=== PATIENT | male | born 1985 | race Caucasian/White ===

== ENCOUNTER 2016-06-04 08:43 | Emergency (ER) | payer OTHER ==
[2016-06-04 08:51] VITALS: BP 164/88; PULSE 90; TEMP 98.1; BMI 36.9
[2016-06-04] MEDS ORDERED: OXYCODONE/APAP 5/325MG COMBO TABLET PO ONE (09:01)
[2016-06-04] MEDS ORDERED: OXYCODONE/APAP 5/325MG COMBO TABLET ONE (09:03)
--- NOTE | 2016-06-04 09:07 | PDOC ---
History of Present Illness - General Chief Complaint: Pain Stated Complaint: left shoulder,neck pain Time Seen by Provider: 06/04/16 08:45 - History of Present Illness Initial Comments: 06/04/16 09:02 30-year-old male with a negative past medical history He works at the [employer], and does a lot of heavy lifting, lifting heavy boxes He's had some left shoulder issues in the past from heavy lifting Patient is complaining of 3 weeks of spontaneous left shoulder pain, which is worse with heavy lifting He denies any radicular symptoms He denies any fall or direct trauma to the area He denies any erythema or swelling He denies any fevers or chills He denies any associated neck pain or chest pain He denies any numbness or tingling in his fingers or hand He denies any other symptoms Past History - Past Medical History Allergies/Adverse Reactions: Allergies Allergy/AdvReac Type Severity Reaction Status Date / Time No Known Allergies Allergy Verified 06/04/16 08:44 Home Medications: Ambulatory Orders Ibuprofen [Motrin -] 800 mg PO PRN PRN 06/04/16 Oxycodone HCl/Acetaminophen [Percocet 5-325 mg Tablet] 1 tab PO Q6H PRN #14 tablet MDD 5 06/04/16 Prednisone [Deltasone -] 20 mg PO DAILY #5 tablet 06/04/16 Diabetes: Yes (borderline) - Psycho/Social/Smoking Cessation Hx Anxiety: No Suicidal Ideation: No Smoking History: Never smoked Have you smoked in the past 12 months: No Information on smoking cessation initiated: No Hx Alcohol Use: Yes (social) Drug/Substance Use Hx: No Substance Use Type: None *Physical Exam - Vital Signs Last Vital Signs Temp Pulse Resp BP Pulse Ox 98.1 F 90 20 164/88 99 06/04/16 08:44 06/04/16 08:44 06/04/16 08:44 06/04/16 08:44 06/04/16 08:44 - Physical Exam Comments: 06/04/16 09:03 Physical exam Last Vital Signs Temp Pulse Resp BP Pulse Ox 98.1 F 90 20 164/88 99 06/04/16 08:44 06/04/16 08:44 06/04/16 08:44 06/04/16 08:44 06/04/16 08:44 Patient is alert and ambulatory and answering questions without difficulty Head is normocephalic and atraumatic There is no C-spine T-spine or LS-spine tenderness Left shoulder- There is no swelling or erythema Patient can extend to 90, and then has pain There is pain with external and internal rotation, and pain with abduction There is no point tenderness All distal neurovascular is intact in the left upper extremity With good pulses and intact sensation Is full range of motion of the elbow and wrist No rashes or erythema is noted Medical Decision Making - Medical Decision Making 06/04/16 09:05 Most likely left shoulder strain/repetitive use syndrome left shoulder patient states that high-dose Motrin is not helping Sling, rest, elevate, will add prednisone No clinical indications for x-ray at this time Will referred orthopedics for follow-up *DC/Admit/Observation/Transfer Diagnosis at time of Disposition: Left shoulder strain, Repetitive motion injury - Discharge Dispostion Disposition: HOME Condition at time of disposition: Good - Referrals Referrals: Shawn West MD [Staff Physician] - Call tomorrow - Patient Instructions Printed Discharge Instructions: How to Use a Sling, Shoulder Sprain, DI for Shoulder Sprain Additional Instructions: Sling as directed, rest Prednisone as directed for the next few days - start tomorrow as you received your first dose here today Motrin for pain, Percocet for breakthrough pain as directed-do not drive when taking this medication Please follow-up with orthopedics in the next few days-you are being referred to Dr. West's group Followup with your primary care physician in 24-48 hours Return immediately if you worsen in any way Take your medications as directed - Post Discharge Activity Work/School Note: Back to Work
[2016-06-04] MEDS ORDERED: predniSONE 20 MG TABLET (UD) PO ONE (09:10)
[2016-06-04] MEDS ORDERED: predniSONE 20 MG TABLET (UD) ONE (09:16)
== END 2016-06-04 09:17 | disposition home or self-care (01) ==
LOC: FER 08:43
DX: S46.912A Strain of unspecified muscle, fascia and tendon at shoulder and upper arm level, left arm, initial encounter (principal); T14.90 Injury, unspecified; X58.XXXA Exposure to other specified factors, initial encounter; Y93.89 Activity, other specified; Y92.9 Unspecified place or not applicable; Y99.0 Civilian activity done for income or pay
CPT/HCPCS: 99282-25

== ENCOUNTER 2017-04-05 12:42 | Emergency (ER) | payer OTHER ==
[2017-04-05 13:16] VITALS: BP 153/93; PULSE 87; TEMP 97.6; BMI 50.1
[2017-04-05] MEDS ORDERED: SODIUM CHLORIDE 1,000 ML IV STA (13:36)
--- NOTE | 2017-04-05 13:38 | PDOC ---
History of Present Illness - History of Present Illness Initial Comments: 04/05/17 15:24 The patient is a 31 year old male, with no significant past medical history, who presents to the emergency department with 2 days of diffuse abdominal pain and slight loss of appetite. He reports the pain is worse in his lower abdomen, however, complains of pain to his abdomen diffusely. He denies chest pain, shortness of breath, headache and dizziness. He denies fever, chills, nausea, vomit, diarrhea and constipation. He denies dysuria, frequency, urgency and hematuria. Allergies: NKDA Past surgical history: none reported Social history: none smoker. No EtOH use. <Cate Sparks - Last Filed: 04/05/17 15:30> - General History Source: Patient <Vick Barrett - Last Filed: 04/05/17 17:39> - General Chief Complaint: Pain Stated Complaint: ABD PAIN Time Seen by Provider: 04/05/17 13:04 Past History <Cate Sparks - Last Filed: 04/05/17 15:30> - Past Medical History COPD: No Diabetes: Yes (borderline) - Suicide/Smoking/Psychosocial Hx Smoking History: Never smoked Have you smoked in the past 12 months: No Information on smoking cessation initiated: No Hx Alcohol Use: Yes (social) Drug/Substance Use Hx: No Substance Use Type: None <Vick Barrett - Last Filed: 04/05/17 17:39> - Past Medical History Allergies/Adverse Reactions: Allergies Allergy/AdvReac Type Severity Reaction Status Date / Time No Known Allergies Allergy Verified 04/05/17 12:43 Home Medications: Ambulatory Orders Ciprofloxacin HCl [Cipro] 500 mg PO BID #20 tablet 04/05/17 Metformin HCl 1,000 mg PO BID 04/05/17 Metronidazole [Flagyl] 375 mg PO TID #30 capsule 04/05/17 Review of Systems - Review of Systems Able to Perform ROS?: Yes Constitutional: Yes: See HPI, Loss of Appetite. No: Chills, Diaphoresis, Fever , Weakness HEENTM: No: Symptoms Reported, See HPI, Eye Pain, Blurred Vision, Tearing, Recent change in vision, Double Vision, Cataracts, Ear Pain, Ocular Prothesis, Ear Discharge, Nose Pain, Nose Congestion, Tinnitus, Nose Bleeding, Hearing Loss , Throat Pain, Throat Swelling, Mouth Pain, Dental Problems, Difficulty Swallowing, Mouth Swelling, Other Respiratory: Yes: See HPI, Other. No: Symptoms reported, Cough, Orthopnea, Shortness of Breath, SOB with Exertion, SOB at Rest, Stridor, Wheezing, Productive cough, Hemoptysis Cardiac (ROS): Yes: Symptoms Reported, See HPI. No: Chest Pain, Edema, Irregular Heart Rate, Lightheadedness, Palpitations, Syncope, Chest Tightness, Other ABD/GI: Yes: Symptoms Reported, See HPI, Poor Appetite, Abdominal cramping ( diffuse abd pain). No: Abdominal Distended, Blood Streaked Bowels, Constipated , Diarrhea, Nausea, Rectal Bleeding, Vomiting, Tarry Stools : Yes: Symptoms Reported, See HPI. No: Burning, Dysuria, Discharge, Frequency , Flank Pain, Hematuria, Incontinence, Pain, Urgency, Testicular Mass, Testicular Swelling, Lesions, Testicular Pain, Other Musculoskeletal: No: Symptoms Reported, See HPI, Back Pain, Gout, Joint Pain, Joint Swelling, Muscle Pain, Muscle Weakness, Neck Pain, Joint Stiffness, Other Integumentary: No: Symptoms Reported, See HPI, Bruising, Change in Color, Change in Hair/Nails, Dryness, Erythema, Flushing, Lesions, Lumps, Pallor, Pruritus, Rash, Sweating, Other Neurological: No: Symptoms reported, See HPI, Headache, Numbness, Paresthesia, Pre-Existing Deficit, Seizure, Tingling, Tremors, Weakness, Unsteady Gait, Ataxia, Dizziness, Other Psychiatric: No: Anxiety, Depression, Frequent Crying, Stressors, Sleep Pattern Change, Emotional Problems, Mood Swings, Change in Appetite, Other Endocrine: No: Symptoms Reported, See HPI, Excessive Sweating, Flushing, Intolerance to Cold, Intolerance to Heat, Increased Hunger, Increased Thirst, Increased Urine, Unexplained Weight Gain, Unexplained Weight Loss, Change in Weight, Other Hematologic/Lymphatic: No: Symptoms Reported, See HPI, Anemia, Blood Clots, Easy Bleeding, Easy Bruising, Bleeding Diathesis, Lymph Node Abnormalities, Swollen Glands, Other All Other Systems: Reviewed and Negative <Cate Sparks - Last Filed: 04/05/17 15:30> *Physical Exam - Vital Signs Last Vital Signs Temp Pulse Resp BP Pulse Ox 97.6 F 87 20 153/93 97 11/30/17 12:43 04/05/17 12:43 04/05/17 12:43 04/05/17 12:43 04/05/17 12:43 - Physical Exam General Appearance: Yes: Appropriately Dressed, Obese HEENT: positive: EOMI, JERAMY, Normal ENT Inspection, Normal Voice, Symmetrical, TMs Normal, Pharynx Normal Neck: positive: Trachea midline, Supple. negative: Tender Respiratory/Chest: positive: Lungs Clear, Normal Breath Sounds. negative: Chest Tender, Respiratory Distress, Crackles, Rales, Rhonchi, Wheezing Cardiovascular: positive: Regular Rhythm, Regular Rate Gastrointestinal/Abdominal: positive: Normal Bowel Sounds, Tender (mild ttp diffuse abdomen), Soft, Protuberent. negative: Organomegaly, Guarding, Rebound , Hepatomegaly Musculoskeletal: positive: Normal Inspection. negative: CVA Tenderness Extremity: positive: Normal Capillary Refill, Normal Inspection, Normal Range of Motion Integumentary: positive: Normal Color Neurologic: positive: wage and salary administrator II-XII NML intact, Fully Oriented, Alert (AAOx3), Normal Mood/Affect, Normal Response, Motor Strength 5/5 <Cate Sparks - Last Filed: 04/05/17 15:30> - Vital Signs Last Vital Signs Temp Pulse Resp BP Pulse Ox 97.6 F 87 20 153/93 97 04/05/17 12:43 04/05/17 12:43 04/05/17 12:43 04/05/17 12:43 04/05/17 12:43 <Vick Barrett - Last Filed: 04/05/17 17:39> ED Treatment Course - LABORATORY CBC & Chemistry Diagram: 04/05/17 13:50 04/05/17 13:50 - ADDITIONAL ORDERS Additional order review: Laboratory Results 04/05/17 13:50 Sodium 131 L Potassium 4.0 Chloride 98 Carbon Dioxide 25 Anion Gap 8 BUN 7 D Creatinine 0.7 Creat Clearance w eGFR > 60 Random Glucose 280 H Calcium 9.2 Total Bilirubin 1.1 H D AST 23 D ALT 23 Alkaline Phosphatase 79 D Total Protein 6.7 Albumin 3.8 04/05/17 13:50 RBC 5.22 MCV 86.1 MCHC 33.9 RDW 11.9 MPV 10.8 Neutrophils % 81.7 D Lymphocytes % 13.4 D Monocytes % 3.2 L Eosinophils % 1.4 Basophils % 0.3 - Medications Given in the ED: ED Medications Discontinued Medications Generic Name Dose Route Start Last Admin Trade Name Nickolas PRN Reason Stop Dose Admin Sodium Chloride 1,000 mls @ 1,000 mls/hr 04/05/17 13:36 04/05/17 13:50 Normal Saline - IV 04/05/17 14:35 1,000 mls/hr ASDIR STA Administration <Cate Sparks - Last Filed: 04/05/17 15:30> - LABORATORY CBC & Chemistry Diagram: 04/05/17 13:50 04/05/17 13:50 <Vick Barrett - Last Filed: 04/05/17 17:39> Medical Decision Making - Medical Decision Making 04/05/17 15:29 The patient was examined upon arrival to ED The patient is a 31y M who presents with 2 day history fo abdominal pain and decreases appetite. Denies n/v/d. I will run a UA and provide IV fluids for rehydration. <Cate Sparks - Last Filed: 04/05/17 15:30> *DC/Admit/Observation/Transfer - Attestations Scribe Attestion: 04/05/17 15:30 Documentation prepared by Cate Sparks, acting as medical billing clerk for Vick Barrett MD <Cate Sparks - Last Filed: 04/05/17 15:30> - Discharge Dispostion Admit: No <Vick Barrett - Last Filed: 04/05/17 17:39> Diagnosis at time of Disposition: Diverticulitis - Discharge Dispostion Disposition: HOME Condition at time of disposition: Improved - Prescriptions Prescriptions: Ciprofloxacin HCl [Cipro] 500 mg PO BID #20 tablet Metronidazole [Flagyl] 375 mg PO TID #30 capsule - Referrals Referrals: Hipolito Pacheco MD [Staff Physician] - - Patient Instructions Printed Discharge Instructions: DI for Diverticulitis - Post Discharge Activity Forms/Work/School Notes: Back to Work
[2017-04-05 14:22] LABS: BASOPHIL 0.3 % (0-2.0); EOSINOPHIL 1.4 % (0-4.5); MCH 29.2 pg (25.7-33.7); MCHC 33.9 g/dl (32.0-35.9); MEAN CELL VOLUME 86.1 fl (80-96); MEAN PLT VOLUME 10.8 fl (7.5-11.1); NEUTROPHILS 81.7 % (42.8-82.8); PLATELET COUNT 189 K/MM3 (134-434); RDW 11.9 % (11.9-15.9); WHITE BLOOD COUNT 12.9 K/mm3 (4.0-10.8)
[2017-04-05 14:35] LABS: ALBUMIN 3.8 g/dl (3.5-5.0); ALK PHOS 79 U/L (32-92); ANION GAP 8 (8-16); BILIRUBIN,TOTAL 1.1 mg/dl (0.2-1.0); CALCIUM 9.2 mg/dl (8.4-10.2); CO2 25 mmol/L (22-28); CREATININE 0.7 mg/dl (0.6-1.3); GLUCOSE,RANDOM 280 mg/dl (74-106); SGOT/AST 23 U/L (10-42); SGPT/ALT 23 U/L (10-40); TOT PROT 6.7 g/dl (6.4-8.3)
[2017-04-05 15:46] LABS: URINE APPEARANCE Clear; URINE BILIRUBIN Negative (NEGATIVE); URINE BLOOD Negative (NEGATIVE); URINE GLUCOSE (UA) 2+ (NEGATIVE); URINE KETONE 2+ (NEGATIVE); URINE LEUK ESTERASE Negative (NEGATIVE); URINE NITRITE Negative (NEGATIVE); URINE PROTEIN Negative (NEGATIVE); URINE UROBILINOGEN 0.2 (0.2-1.0)
[2017-04-05 15:48] LABS: URINE COLOR YELLOW
[2017-04-05] MEDS ORDERED: LEVOFLOXACIN 750 MG IVPB 750 MG/150 ML BAG IVPB ONE ×2 (15:57→16:21)
[2017-04-05] MEDS ORDERED: METRONIDAZOLE 500 MG PREMIXED 500 MG/100 ML MG IVPB ONE ×2 (15:57→16:22)
== END 2017-04-05 17:41 | disposition home or self-care (01) ==
LOC: FER 12:42
PROC: 3E03329 Introduction of Other Anti-infective into Peripheral Vein, Percutaneous Approach (ICD-10-PCS; principal; 2017-04-05)
PROC: 3E0337Z Introduction of Electrolytic and Water Balance Substance into Peripheral Vein, Percutaneous Approach (ICD-10-PCS; 2017-04-05)
DX: K57.92 Diverticulitis of intestine, part unspecified, without perforation or abscess without bleeding (principal); R73.03 Prediabetes
CPT/HCPCS: 36415; 74177-TC; 80053; 81003; 85025; 99282-25

== ENCOUNTER 2018-02-17 12:25 | Emergency (ER) | payer SELFPAY ==
[2018-02-17 12:37] VITALS: BP 162/88; PULSE 86; TEMP 97.4; BMI 34.8
--- NOTE | 2018-02-17 12:39 | PDOC ---
Attending Attestation - Resident Resident Name: Carrie Palm - ED Attending Attestation I have performed the following: I have examined & evaluated the patient, The case was reviewed & discussed with the resident, I agree w/resident's findings & plan, Exceptions are as noted - HPI HPI: 02/17/18 13:29 Abdominal pain since this morning. Most severe in the left lower quadrant, Nausea but no vomiting. One watery bowel movement in the a.m. No fever/chills. Had take-out food from [employer] last night, containing beef but it appeared to be well cooked. 02/17/18 15:03 - Physicial Exam PE: 02/17/18 13:31 Physical exam: Patient is afebrile. Abdomen is nondistended, with normal bowel sounds. Completely soft without mass or organomegaly. Mild to moderate tenderness left lower quadrant without guarding or rebound. Rectal exam, performed by the resident, was normal. Stool guaiac is negative. Remainder physical exam is normal 02/17/18 15:04 - Medical Decision Making 02/17/18 13:31 Assessment: Patient's symptoms and physical findings are suggestive of recurrent diverticulitis, but acute gastroenteritis is also a possibility Upon review of the prior CT scan from one year ago, findings appeared to be nonspecific, consistent with diverticulitis but also with inflammatory colitis. Plan: Intravenous fluids, CBC and chemistries, consider imaging if more suggestive of diverticulitis or other acute abdominal disease. 02/17/18 15:05 White blood count is 9.3. Remainder of labs are unremarkable except for an elevated blood sugar of 267. Abdominal exam is unchanged. Dose of intravenous antibiotics was given. Continue on antibiotics as an outpatient. Return to hospital if there is fever, increased pain, vomiting, or other symptoms. Otherwise follow up with water analyst as directed.
--- NOTE | 2018-02-17 12:40 | PDOC ---
History of Present Illness - General Chief Complaint: Pain Stated Complaint: ABD PAIN Time Seen by Provider: 02/17/18 12:40 - History of Present Illness Initial Comments: 32yo M with PMH of pre-diabetes, pre-hypertension, and diverticulitis presenting with abdominal pain. The pain is most focal to the LLQ, but also present in the periumbilical area and RLQ. Patient reports last bowel movement was a couple hours prior to arrival which was a loose brown stool without blood. Pain is constant and rated at 4-5/10, intermittently increasing in severity to 7-8/10. Patient was not taken anything at home for his pain. He has felt nausea, but not vomiting. His current symptoms feel similar to that of his episode of diverticulitis on 04/05/17 for which he was seen in this ED and was treated with ciprofloxacin and flagyl. No history of abdominal surgeries. No hematuria or dysuria. Patient endorses fever and chills, but no chest pain or shortness of breath. Past History - Past Medical History Allergies/Adverse Reactions: Allergies Allergy/AdvReac Type Severity Reaction Status Date / Time No Known Allergies Allergy Verified 02/17/18 12:27 Home Medications: Ambulatory Orders Ciprofloxacin [Cipro -] 500 mg PO Q12H #14 tablet 02/17/18 Metronidazole [Flagyl] 500 mg PO Q8H 7 Days #21 capsule 02/17/18 COPD: No Diabetes: Yes ("borderline") GI Disorders: Yes (diverticulitis) HTN: Yes ("borderline") - Suicide/Smoking/Psychosocial Hx Smoking History: Never smoked Have you smoked in the past 12 months: No Information on smoking cessation initiated: No Hx Alcohol Use: (occasional) Drug/Substance Use Hx: No Substance Use Type: None Review of Systems - Review of Systems Comments:: Constitutional: +fever, +chills HEENT: no throat pain, no dysphagia Cardiovascular: no chest pain, no palpitations Respiratory: no cough, no shortness of breath Gastrointestinal: +abdominal pain, +nausea, no vomiting, +diarrhea, no constipation Genitourinary: no dysuria, no frequency Musculoskeletal: no myalgia, no arthralgia Skin: no rash, no itching Neurologic: no headache, no dizziness *Physical Exam - Vital Signs Last Vital Signs Temp Pulse Resp BP Pulse Ox 97.4 F L 86 18 162/88 99 02/17/18 12:25 02/17/18 12:25 02/17/18 12:25 02/17/18 12:25 02/17/18 12:25 - Physical Exam Comments: General: Awake, alert, and fully oriented, in no acute distress Head: no signs of trauma Eyes: EOMI, sclera anicteric ENT: Moist mucus membranes Neck: Normal ROM, supple Lungs: Lungs clear, Normal breath sounds Cardio: Regular rhythm, S1 and S2 present Abdomen: Tender to palpation LLQ, and less so in periumbilical area and RLQ. No guarding, no rebound, no masses Rectal: The skin is without erythema or induration. No external hemorrhoids, fissures, skin tags, warts, or discharge. Sphincter tone normal. There are no masses palpated on digital exam. Extremities: Normal range of motion, Distal pulses present SKIN: Warm, Dry, normal turgor Neurologic: Cranial nerves II through XII grossly intact. Normal speech ED Treatment Course - LABORATORY CBC & Chemistry Diagram: 02/17/18 13:13 02/17/18 13:13 Medical Decision Making - Medical Decision Making 32yo M with PMH of pre-diabetes, pre-hypertension, and diverticulitis presenting with abdominal pain. -DDX includes but not limited to diverticulitis, kidney stone, urinary tract infection, pyelonephritis, pancreatitis, colitis, gastroenteritis -Labs: no leukocytosis or anemia, lipase negative, FOBT, negative - UA positive for glucose: instructed patient to follow-up with primary care provider to assess for diabetes -1L NS to hydrate patient who reported episode of diarrhea -1g Ofirmev for pain -IV levofloxacin and flagyl -Though WBC normal, will clinically treat with antibiotics for diverticulitis vs colitis -Discharged with prescription for ciprofloxacin and flagyl *DC/Admit/Observation/Transfer Diagnosis at time of Disposition: Abdominal pain - Discharge Dispostion Disposition: HOME Condition at time of disposition: Stable - Prescriptions Prescriptions: Ciprofloxacin [Cipro -] 500 mg PO Q12H #14 tablet Metronidazole [Flagyl] 500 mg PO Q8H 7 Days #21 capsule - Referrals Referrals: Hipolito Pacheco MD [Primary Care Provider] - - Patient Instructions Printed Discharge Instructions: DI for Abdominal Pain-Adult Additional Instructions: You came to the ED for abdominal pain. Antibiotics (Ciprofloxacin and Metronidazole) prescription sent to your pharmacy. Follow up with your primary care physician in 2-3 days. RETURN if: you develop high fevers, severe pain, constipation, intractable vomiting, are unable to take your antibiotics, or develop any new or concerning symptoms. - Post Discharge Activity Forms/Work/School Notes: Back to Work
[2018-02-17] MEDS ORDERED: ACETAMINOPHEN 1000 MG/100 ML VIAL (NON FORMULARY) IVPB ONE (13:03)
[2018-02-17] MEDS ORDERED: SODIUM CHLORIDE 1,000 ML IV STA (13:03)
[2018-02-17] MEDS ORDERED: ACETAMINOPHEN INJECTION 100 ML IVPB ONE (13:08)
[2018-02-17 13:27] LABS: BASO % 0.4 % (0-2.0); EOS % 1.3 % (0-4.5); HEMATOCRIT 44.8 % (35.4-49); HEMOGLOBIN 14.5 GM/dl (11.7-16.9); LYMPH % 13.3 % (8-40); MCH 28.6 pg (25.7-33.7); MCHC 32.4 g/dl (32.0-35.9); MEAN CELL VOLUME 88.2 fl (80-96); MEAN PLT VOLUME 10.6 fl (7.5-11.1); MONO % 3.7 % (3.8-10.2); NEUT % 81.3 % (42.8-82.8); PLATELET COUNT 174 K/MM3 (134-434); RBC 5.08 M/mm3 (4.00-5.60); RDW 12.5 % (11.9-15.9); WHITE BLOOD COUNT 9.3 K/mm3 (4.0-10.8)
[2018-02-17 13:31] LABS: ALBUMIN 3.8 g/dl (3.5-5.0); ALK PHOS 60 U/L (32-92); ANION GAP 6 MMOL/L (8-16); BILIRUBIN,TOTAL 0.7 mg/dl (0.2-1.0); BLOOD UREA NITROGEN 11 mg/dl (7-18); CALCIUM 8.8 mg/dl (8.4-10.2); CHLORIDE 101 mmol/L (98-107); CO2 25 mmol/L (22-28); CREATININE 0.8 mg/dl (0.6-1.3); GLUCOSE,RANDOM 287 mg/dl (74-106); POTASSIUM 3.9 mmol/L (3.5-5.1); SGOT/AST 14 U/L (10-42); SGPT/ALT 13 U/L (10-40); SODIUM 132 mmol/L (136-145); TOT PROT 6.5 g/dl (6.4-8.3)
[2018-02-17 14:05] LABS: LIPASE 83 U/L (73-393)
[2018-02-17 14:58] LABS: PH,URINE 5.5 (4.5-8); URINE APPEARANCE Clear; URINE BILIRUBIN Negative (NEGATIVE); URINE COLOR Yellow; URINE GLUCOSE (UA) 2+ (NEGATIVE); URINE KETONE Negative (NEGATIVE); URINE LEUK ESTERASE Negative (NEGATIVE); URINE NITRITE Negative (NEGATIVE); URINE PROTEIN Negative (NEGATIVE); URINE UROBILINOGEN 0.2 (0.2-1.0)
[2018-02-17] MEDS ORDERED: CIPROFLOXACIN 400 MG/D5W 400 MG/200 ML IVPB IVPB ONE (15:43)
== END 2018-02-17 17:41 | disposition home or self-care (01) ==
LOC: FER 12:25
PROC: 3E03329 Introduction of Other Anti-infective into Peripheral Vein, Percutaneous Approach (ICD-10-PCS; principal; 2018-02-17)
PROC: 3E0337Z Introduction of Electrolytic and Water Balance Substance into Peripheral Vein, Percutaneous Approach (ICD-10-PCS; 2018-02-17)
PROC: 3E033NZ Introduction of Analgesics, Hypnotics, Sedatives into Peripheral Vein, Percutaneous Approach (ICD-10-PCS; 2018-02-17)
DX: R10.9 Unspecified abdominal pain (principal); R73.03 Prediabetes
CPT/HCPCS: 36415; 80053; 81003; 82272; 83690; 85025; 87086; 99285-25; J0131; J7030

== ENCOUNTER 2018-04-26 08:16 | Emergency (ER) | payer OTHER ==
[2018-04-26] MEDS ORDERED: IBUPROFEN 600 MG TABLET (FP) PO ONE ×2 (08:23→08:36)
--- NOTE | 2018-04-26 08:30 | PDOC ---
History of Present Illness - General Chief Complaint: Injury Stated Complaint: RT GREAT TOE INJURY Time Seen by Provider: 04/26/18 08:17 History Source: Patient Exam Limitations: No Limitations - History of Present Illness Initial Comments: 04/26/18 08:24 32-year-old male with history of prediabetes on metformin presents with right first great toe pain. Yesterday, the patient was stacking chairs when a stack of chairs fell on his first great toe. Patient reports pain at the site as well as ecchymosis. However, denies any lacerations or abrasions. No numbness or weakness. Reports pain on ambulation. Took no medications. Past History - Past Medical History Allergies/Adverse Reactions: Allergies Allergy/AdvReac Type Severity Reaction Status Date / Time levofloxacin [From Levaquin] Allergy Intermediate Itching Verified 04/26/18 08: 17 Home Medications: Ambulatory Orders Metformin HCl [Glucophage] 1,000 mg PO BID 04/26/18 COPD: No Diabetes: Yes ("borderline") GI Disorders: Yes (diverticulitis) HTN: Yes ("borderline") - Suicide/Smoking/Psychosocial Hx Smoking History: Never smoked Have you smoked in the past 12 months: No Hx Alcohol Use: (occasional) Drug/Substance Use Hx: No Substance Use Type: None Review of Systems - Review of Systems Able to Perform ROS?: Yes Comments:: 04/26/18 08:25 GENERAL/CONSTITUTIONAL: [No fever or chills. No weakness. No weight change.] HEAD, EYES, EARS, NOSE AND THROAT: [No change in vision. No ear pain or discharge. No sore throat.] CARDIOVASCULAR: [No chest pain or shortness of breath.] RESPIRATORY: [No cough, wheezing, or hemoptysis.] GASTROINTESTINAL: [No nausea, vomiting, diarrhea or constipation. No rectal bleeding.] GENITOURINARY: [No dysuria, frequency, or change in urination.] MUSCULOSKELETAL: No neck or back pain. +1st right toe pain SKIN AND BREASTS: [No rash or easy bruising.] NEUROLOGIC: [No headache, vertigo, loss of consciousness, or loss of sensation.] PSYCHIATRIC: [No depression or anxiety.] ENDOCRINE: [No increased thirst. No abnormal weight change.] HEMATOLOGIC/LYMPHATIC: [No anemia, easy bleeding, or history of blood clots.] ALLERGIC/IMMUNOLOGIC: [No hives or skin allergy. No latex allergy.] *Physical Exam - Physical Exam Comments: 04/26/18 08:26 GENERAL: Awake, alert, and fully oriented, in no acute distress HEAD: No signs of trauma EYES: PERRLA, EOMI, sclera anicteric, conjunctiva clear ENT: Auricles normal inspection, hearing grossly normal, nares patent, Moist mucosa NECK: Normal ROM, supple, EXTREMITIES: Normal range of motion, no edema. No clubbing or cyanosis. No cords, erythema, or tenderness RLE: 2+ DP Pulse. Sensation intact throughout. No subungal hematoma appreciated at 1st toe. 1st toe with TTP at the distal portion of toe with ecchymosis of the tissue. Able to flex and extend the digit fully. NEUROLOGICAL: Cranial nerves II through XII grossly intact. Normal speech, normal gait SKIN: Warm, Dry, normal turgor, no rashes or lesions noted. ED Treatment Course - RADIOLOGY Radiology Studies Ordered: Category Date Time Status TOE(S) RIGHT [RAD] Stat Radiology 04/26/18 08:23 Ordered Medical Decision Making - Medical Decision Making 04/26/18 08:27 No evidence of subungual hematoma. However, we'll rule out toe fracture. X-ray, NSAIDs and reassess. 04/26/18 09:08 Radiograph reviewed by me, pending official radiology read. Questionable nondisplaced fracture at base of 1st great toe. Pt placed with ashia tape and hard sole shoe. Weight bearing as tolerated. Leg elevation. NSAIDS. Follow up with orthopedics. I discussed the physical exam findings, ancillary test results and final diagnoses with the patient. I answered all of the patient's questions. The patient was satisfied with the care received and felt comfortable with the discharge plan and treatment plan. The patient will call their primary care physician within 24 hours to arrange follow-up and will return to the Emergency Department with any new, persistant or worsening symptoms. *DC/Admit/Observation/Transfer Diagnosis at time of Disposition: Toe pain, right - Discharge Dispostion Disposition: HOME Condition at time of disposition: Stable Decision to Admit order: No - Referrals Referrals: Vitaliy Domingo MD [Staff Physician] - - Patient Instructions Printed Discharge Instructions: DI for Toe Sprain, DI for Toe Fracture Additional Instructions: Your preliminary xray read shows questionable fracture of your 1st toe. However, please call back at [phone] for the official read. Either way, your toe gets treated the same way. Ashia tape your toes. Wear the hard sole shoe. 600 mg ibuprofen (motrin) every 6 hours as needed for pain. Elevate the foot as much as you can when you sleep. Follow up with orthopedics in 1 to 2 weeks. Walk as tolerated. No contact sports. - Post Discharge Activity
[2018-04-26 08:33] VITALS: BP 149/99; PULSE 85; TEMP 98.5; BMI 36.5
== END 2018-04-26 09:24 | disposition home or self-care (01) ==
LOC: FER 08:16
PROC: 2W3UXYZ Immobilization of Right Toe using Other Device (ICD-10-PCS; principal; 2018-04-26)
DX: M79.674 Pain in right toe(s) (principal); W22.8XXA Striking against or struck by other objects, initial encounter; Y93.89 Activity, other specified; Y92.89 Other specified places as the place of occurrence of the external cause
CPT/HCPCS: 73660-TC-FY; 99281-25

== ENCOUNTER 2018-07-28 11:04 | Emergency (ER) | payer OTHER ==
--- NOTE | 2018-07-28 11:08 | PDOC ---
History of Present Illness - General Chief Complaint: Pain Stated Complaint: DIVERTICULITIS - History of Present Illness Initial Comments: 32 yo M with PMH of pre-diabetes, pre-hypertension, and diverticulitis presenting with abdominal pain. Patient states this episode feels like his previous episode of diverticulitis-- this would now be his third exacerbation. His last flare-up was in February 2018. Patient has never seen a GI doctor or had a colonoscopy. He states this episode started on /Sunday and the pain is rated 4-5/10 at baseline with moments of 7/10 pain. He has not taken anything at home for his pain. He had diarrhea for the first couple days, but his last bowel movement was yesterday morning and it is unusual for the patient to be constipated. He has not eaten anything since last night as he is afraid of worsening his constipation, but endorses good liquid intake. Endorses minor nausea, but no vomiting, No history of abdominal surgeries. Denies fevers, chest pain, or shortness of breath. PCP: Dr. Pacheco Past History - Past Medical History Allergies/Adverse Reactions: Allergies Allergy/AdvReac Type Severity Reaction Status Date / Time levofloxacin [From Levaquin] Allergy Intermediate Itching Verified 07/28/18 11: 12 Home Medications: Ambulatory Orders Metformin HCl [Glucophage] 1,000 mg PO BID 04/26/18 Amoxicillin/Potassium Clav [Amox-Clav 875-125 mg Tablet] 2 each PO BID #28 tablet 07/28/18 COPD: No Diabetes: Yes ("borderline") GI Disorders: Yes (diverticulitis) HTN: Yes ("borderline") - Suicide/Smoking/Psychosocial Hx Smoking History: Never smoked Have you smoked in the past 12 months: No Hx Alcohol Use: (occasional) Drug/Substance Use Hx: No Substance Use Type: None Review of Systems - Review of Systems Comments:: Constitutional: no fever, +chills HEENT: no throat pain, no dysphagia Cardiovascular: no chest pain, no palpitations Respiratory: no cough, no shortness of breath Gastrointestinal: +abdominal pain, no vomiting Genitourinary: no dysuria, no frequency Musculoskeletal: no myalgia, no arthralgia Skin: no rash, no itching Neurologic: no headache, no weakness *Physical Exam - Physical Exam Comments: General: Awake, alert, and fully oriented, in no acute distress Head: No signs of trauma Eyes: EOMI, sclera anicteric ENT: Dry mucus membranes Neck: Normal ROM, supple Lungs: Lungs clear, Normal breath sounds Cardio: Regular rhythm, S1 and S2 present Abdomen: Tender to palpation in LLQ, soft, nondistended. No guarding, no rebound , no masses. No CVA tenderness Extremities: Normal range of motion, Distal pulses present SKIN: Warm, Dry, normal turgor Neurologic: Cranial nerves II through XII grossly intact. Normal speech ED Treatment Course - LABORATORY CBC & Chemistry Diagram: 07/28/18 11:50 07/28/18 11:50 Medical Decision Making - Medical Decision Making 32 yo M with PMH of pre-diabetes, pre-hypertension, and diverticulitis presenting with abdominal pain. -DDX includes but not limited to diverticulitis, pyelonephritis, pancreatitis, colitis, gastroenteritis, gastritis CBC, CMP 1g Ofirmev Patient states he has a sensitivity to levaquin; ordered 1g Rocephin and 500mg Flagyl 1L NS Will reassess 07/28/18 11:53 Patient feels his pain is somewhat alleviated, as it is not going up to 7/10 No leukocytosis or anemia Though WBC normal, will clinically treat with antibiotics for diverticulitis Sent outpatient prescription for augmentin Plan to discharge 07/28/18 12:44 *DC/Admit/Observation/Transfer Diagnosis at time of Disposition: Diverticulitis - Discharge Dispostion Disposition: HOME Condition at time of disposition: Stable - Prescriptions Prescriptions: Amoxicillin/Potassium Clav [Amox-Clav 875-125 mg Tablet] 2 each PO BID #28 tablet - Referrals Referrals: Hipolito Pacheco MD [Primary Care Provider] - Gigi Espinoza MD [Staff Physician] - [place] MD [Staff Physician] - - Patient Instructions Printed Discharge Instructions: DI for Diverticulitis Additional Instructions: You came to the ED for abdominal pain. Your history and presentation is consistent with diverticulitis. Antibiotics prescription sent to your pharmacy. You can take [id number] tylenol for pain. Follow the instructions on the medication bottle Follow up with your primary care physician in 2-3 days. Call and make an appointment. Your workup is not complete until you do so. Referrals for GI and Surgery have been provided. Immediate medical attention is required if you have: high fevers, severe pain, constipation, intractable vomiting, are unable to take your antibiotics, or develop any new or concerning symptoms. If you think you are having an emergency , call for emergency medical services or present to the emergency department right away. - Post Discharge Activity Forms/Work/School Notes: Back to Work
--- NOTE | 2018-07-28 11:14 | PDOC ---
Attending Attestation - Resident Resident Name: Carrie Palm - ED Attending Attestation I have performed the following: I have examined & evaluated the patient, The case was reviewed & discussed with the resident, I agree w/resident's findings & plan - HPI HPI: 07/28/18 11:12 32 y/o male with LLQ pain since yesterday. No fever or chills. Denies N/V but had some diarrhea a couple of days ago. More constipated now. No fall or trauma. Hx of diverticulitis in the past. Feels similar to prior episodes of diverticulitis. Patient has had at least 3 episodes of diverticulitis in the past. 07/28/18 12:45 07/28/18 12:48 - Physicial Exam PE: 07/28/18 11:13 VS stable HEENT: unremarkable, appears well. Heart: RRR w/o murmur Lungs: CTA b/l, no wheezes rhonchi or rales Abd: LLQ tenderness, no rebound, no RLQ, RUQ or LUQ tenderness +BS Ext: no C/C/E Neuro: grossly intact with no focal deficits noted 07/28/18 12:46 - Medical Decision Making 07/28/18 12:46 Pt placed on IVF and Tylenol. Given Rocephin 1 gram IV and Flagyl 500mg IV Labs normal except for elevated glucose Will treat with Augmentin at out patient with follow up with Surgeon and GI Patient is in agreement with plan, will hol doff on CT abd/pelvis, if worsen will return to ER In agreement with Dr. Palm, chart and labs and patient reviewed Dx: LLQ pain, diverticulitis
[2018-07-28 11:18] VITALS: BP 137/87; PULSE 88; TEMP 98.4; BMI 36.9
[2018-07-28] MEDS ORDERED: SODIUM CHLORIDE 1,000 ML IV STA (11:31)
[2018-07-28] MEDS ORDERED: ACETAMINOPHEN 1000 MG/100 ML VIAL (NON FORMULARY) IVPB ONE (11:31)
[2018-07-28] MEDS ORDERED: CEFTRIAXONE 1,000 MG in DEXTROSE 5%-WATER - 50 ML IVPB ONE (11:32)
[2018-07-28] MEDS ORDERED: ACETAMINOPHEN INJECTION 100 ML IVPB ONE (11:40)
[2018-07-28] MEDS ORDERED: cefTRIAXone SODIUM 1 GM VIAL ONE (11:41)
[2018-07-28 12:17] LABS: BASO % 0.2 % (0-2.0); EOS % 2.6 % (0-4.5); HEMOGLOBIN 14.3 GM/dl (11.7-16.9); LYMPH % 15.8 % (8-40); MCH 29.1 pg (25.7-33.7); MCHC 32.5 g/dl (32.0-35.9); MEAN CELL VOLUME 89.5 fl (80-96); MEAN PLT VOLUME 9.9 fl (7.5-11.1); NEUT % 76.4 % (42.8-82.8); PLATELET COUNT 170 K/MM3 (134-434); RBC 4.92 M/mm3 (4.00-5.60); RDW 12.2 % (11.9-15.9); WHITE BLOOD COUNT 10.2 K/mm3 (4.0-10.8)
[2018-07-28 12:23] LABS: ALBUMIN 3.5 g/dl (3.4-5.0); ALK PHOS 60 U/L (45-117); ANION GAP 10 MMOL/L (8-16); BLOOD UREA NITROGEN 21 mg/dl (7-18); CALCIUM 8.5 mg/dl (8.5-10); CHLORIDE 100 mmol/L (98-107); CO2 24 mmol/L (21-32); CREATININE 0.7 mg/dl (0.55-1.3); GLUCOSE,RANDOM 274 mg/dl (74-106); POTASSIUM 3.9 mmol/L (3.5-5.1); SGOT/AST 16 U/L (15-37); SGPT/ALT 19 U/L (13-61); SODIUM 134 mmol/L (136-145); TOT PROT 6.2 g/dl (6.4-8.2)
== END 2018-07-28 13:15 | disposition home or self-care (01) ==
LOC: FER 11:04
PROC: 3E033NZ Introduction of Analgesics, Hypnotics, Sedatives into Peripheral Vein, Percutaneous Approach (ICD-10-PCS; principal; 2018-07-28)
PROC: 3E03329 Introduction of Other Anti-infective into Peripheral Vein, Percutaneous Approach (ICD-10-PCS; 2018-07-28)
PROC: 3E0337Z Introduction of Electrolytic and Water Balance Substance into Peripheral Vein, Percutaneous Approach (ICD-10-PCS; 2018-07-28)
DX: K57.92 Diverticulitis of intestine, part unspecified, without perforation or abscess without bleeding (principal); R73.03 Prediabetes
CPT/HCPCS: 36415; 80053; 85025; 99283-25; J0131; J7030

== ENCOUNTER 2019-03-18 14:45 | Emergency (ER) | payer OTHER ==
--- NOTE | 2019-03-18 14:47 | PDOC ---
History of Present Illness - General Chief Complaint: Pain Stated Complaint: ABD PAIN Time Seen by Provider: 03/18/19 14:47 Past History - Past Medical History Allergies/Adverse Reactions: Allergies Allergy/AdvReac Type Severity Reaction Status Date / Time levofloxacin [From Levaquin] Allergy Intermediate Itching Verified 03/18/19 14: 47 Home Medications: Ambulatory Orders Metformin HCl [Glucophage] 1,000 mg PO BID 04/26/18 COPD: No Diabetes: Yes ("borderline") GI Disorders: Yes (diverticulitis) HTN: Yes ("borderline") - Psycho Social/Smoking Cessation Hx Smoking History: Never smoked Have you smoked in the past 12 months: No Hx Alcohol Use: (occasional) Drug/Substance Use Hx: No Substance Use Type: None Discharge - Discharge Information Condition: Stable - Follow up/Referral Referrals: Hipolito Pacheco MD [Primary Care Provider] - - Patient Discharge Instructions - Post Discharge Activity
[2019-03-18 14:52] VITALS: BMI 38.3
[2019-03-18 15:25] LABS: BASO % 0.3 % (0-2.0); EOS % 0.7 % (0-4.5); HEMATOCRIT 46.9 % (35.4-49); HEMOGLOBIN 15.9 GM/dl (11.7-16.9); MCH 30.4 pg (25.7-33.7); MCHC 33.8 g/dl (32.0-35.9); MEAN PLT VOLUME 9.5 fl (7.5-11.1); MONO % 2.4 % (3.8-10.2); NEUT % 83.6 % (42.8-82.8); PLATELET COUNT 198 K/MM3 (134-434); RBC 5.21 M/mm3 (4.00-5.60); RDW 11.9 % (11.9-15.9); WHITE BLOOD COUNT 12.3 K/mm3 (4.0-10.8)
[2019-03-18 15:32] LABS: ALBUMIN 4.2 g/dl (3.4-5.0); BILIRUBIN,TOTAL 0.6 mg/dl (0.2-1); CREATININE 0.7 mg/dl (0.55-1.3); POTASSIUM 4.3 mmol/L (3.5-5.1); TOT PROT 7.1 g/dl (6.4-8.2)
[2019-03-18] MEDS ORDERED: TAMSULOSIN HCL 0.4 MG CAP PO ONE (16:03)
[2019-03-18] MEDS ORDERED: AMPICILLIN NA/SULBACTAM NA 3 GM in SODIUM CHLORIDE 100 ML IVPB ONE (16:52)
--- NOTE | 2019-03-18 16:53 | PDOC ---
Documentation entered by Leonie Byrd SCRIBE, acting as scribe for Suleiamn Parrish MD. Suleiman Parrish MD: This documentation has been prepared by the [facility] Adrianna, SCRIBE, under my direction and personally reviewed by me in its entirety. I confirm that the documentation accurately reflects all work, treatment, procedures, and medical decision making performed by me. History of Present Illness - General Chief Complaint: Pain Stated Complaint: ABD PAIN Time Seen by Provider: 03/18/19 14:47 - History of Present Illness Initial Comments: The patient is a 33 year old male, with a significant PMH of DM, HTN, diverticulitis, and cervical disc herniations, who presents to the ED for evaluation of abdominal pain that began this morning. Patient complains of sudden-onset diffuse lower abdominal pressure, that he describes as a bloating sensation. He endorses associated nausea without vomit. Patient notes his LBM was yesterday with some mucus. He notes he has had diverticulitis in the past, and his current symptoms are similar to his previous episodes. Patients last flare-up of diverticulitis was in July of 2018, and he denies any admission to the hospital at that time (resolved with IV antibiotics). He denies history of abdominal surgeries. Allergies: Levofloxacin Surgical History: None reported Social History: Social EtOH use. Denies tobacco or illicit drug use PCP: Dr. Pacheco Past History - Past Medical History Allergies/Adverse Reactions: Allergies Allergy/AdvReac Type Severity Reaction Status Date / Time levofloxacin [From Levaquin] Allergy Intermediate Itching Verified 03/18/19 14: 47 Home Medications: Ambulatory Orders Metformin HCl [Glucophage] 1,000 mg PO BID 04/26/18 Amox-Tr/K Cl [Augmentin 875-125mg Tablet -] 1 tab PO BID #14 tablet 03/18/19 Oxycodone HCl/Acetaminophen [Percocet 10-325 mg Tablet] 1 each PO Q6H PRN Oxycodone HCl/Acetaminophen [Percocet 5-325 mg Tablet] 1 - 2 tab PO Q4H PRN #20 tablet MDD 6 03/18/19 Ramipril 5 mg PO DAILY 03/18/19 COPD: No Diabetes: Yes ("borderline") GI Disorders: Yes (diverticulitis) HTN: Yes ("borderline") Other medical history: neck, herniated disk - Psycho Social/Smoking Cessation Hx Smoking History: Never smoked Have you smoked in the past 12 months: No Information on smoking cessation initiated: No Hx Alcohol Use: (occasional) Drug/Substance Use Hx: No Substance Use Type: None Review of Systems - Review of Systems Comments:: GENERAL/CONSTITUTIONAL: No fever or chills. No weakness. HEAD, EYES, EARS, NOSE AND THROAT: No change in vision. No ear pain or discharge. No sore throat. CARDIOVASCULAR: No chest pain or shortness of breath. RESPIRATORY: No cough, wheezing, or hemoptysis. GASTROINTESTINAL: +Diffuse lower abdominal pain. +Nausea. +Mucus in stool. No diarrhea or constipation. GENITOURINARY: No dysuria, frequency, or change in urination. MUSCULOSKELETAL: No joint or muscle swelling or pain. No neck or back pain. SKIN: No rash NEUROLOGIC: No headache, vertigo, loss of consciousness, or change in strength/ sensation. ENDOCRINE: No increased thirst. No abnormal weight change. HEMATOLOGIC/LYMPHATIC: No anemia, easy bleeding, or history of blood clots. ALLERGIC/IMMUNOLOGIC: No hives or skin allergy. *Physical Exam - Vital Signs Last Vital Signs Temp Pulse Resp BP Pulse Ox 98.7 F 108 H 20 170/113 H 99 03/18/19 14:45 03/18/19 14:45 03/18/19 14:45 03/18/19 14:45 03/18/19 14:45 - Physical Exam Comments: GENERAL: Awake, alert, and fully oriented, in no acute distress HEAD: No signs of trauma EYES: PERRLA, EOMI, sclera anicteric, conjunctiva clear. No pallor or icterus. ENT: Auricles normal inspection, hearing grossly normal, nares patent, oropharynx clear without exudates. Moist mucosa NECK: Normal ROM, supple, no lymphadenopathy, JVD, or masses LUNGS: Breath sounds equal, clear to auscultation bilaterally. No wheezes, and no crackles HEART: Regular rate and rhythm, normal S1 and S2, no murmurs, rubs or gallops ABDOMEN: +Mild to moderate tenderness to deep palpation in the lower abdomen, most pronounced in the left lower quadrant but also present in the suprapubic and right lower quadrant area. Soft, normoactive bowel sounds. No guarding, no rebound. No masses or hernias. GENITOURINARY: No abnormalities. EXTREMITIES: Normal range of motion, no edema. No clubbing or cyanosis. No cords, erythema, or tenderness NEUROLOGICAL: Cranial nerves II through XII grossly intact. Normal speech, normal gait SKIN: Warm, Dry, normal turgor, no rashes or lesions noted. No pallor or icterus. ED Treatment Course - LABORATORY CBC & Chemistry Diagram: 03/18/19 15:00 03/18/19 15:00 Medical Decision Making - Medical Decision Making 03/18/19 18:15 White blood count 12.3. Glucose greater than 300. No other significant abnormalities in CBC chemistries are urinalysis Patient prefers to avoid admission and take oral antibiotics at home, as he has done in the past for prior bouts of diverticulitis. He understands that he should return to the ER immediately if the pain gets worse, if there is fever/ chills, nausea, vomiting, or diarrhea. This could indicate an abscess formation in the abdomen. If stable, he will follow-up with his primary physician as directed. Discharge - Discharge Information Problems reviewed: Yes Clinical Impression/Diagnosis: Diverticulitis Condition: Stable Disposition: HOME - Admission No - Additional Discharge Information Prescriptions: Amox-Tr/K Cl [Augmentin 875-125mg Tablet -] 1 tab PO BID #14 tablet Oxycodone HCl/Acetaminophen [Percocet 5-325 mg Tablet] 1 - 2 tab PO Q4H PRN #20 tablet MDD 6 PRN Reason: Pain - Follow up/Referral Referrals: Hipolito Pacheco MD [Primary Care Provider] - 2 Days - Patient Discharge Instructions Patient Printed Discharge Instructions: DI for Diverticulitis Additional Instructions: Clear liquid diet until symptoms improve. Antibiotics as directed. Return to ER if pain is worse or there are any other associated symptoms such as fever, chills, nausea, vomiting, diarrhea. Otherwise follow-up with Dr. Pacheco in 2 days. - Post Discharge Activity Work/Back to School Note: Back to Work
[2019-03-18] MEDS ORDERED: AMPICILLIN NA/SULBACTAM NA 3 GM VIAL ONE (16:58)
[2019-03-18] MEDS ORDERED: KETOROLAC TROMETHAMINE 30 MG/1 ML VIAL IVPUSH ONE (17:04)
[2019-03-18] MEDS ORDERED: FAMOTIDINE 20 MG/50 ML IVPB 20 MG/50 ML MG IVPB ONE ×2 (17:04→17:15)
[2019-03-18] MEDS ORDERED: KETOROLAC TROMETHAMINE 30 MG/1 ML VIAL ONE (17:06)
[2019-03-18 18:51] VITALS: BP 158/77; PULSE 78; TEMP 97.9
== END 2019-03-18 18:46 | disposition home or self-care (01) ==
LOC: FER 14:45
PROC: 3E0333Z Introduction of Anti-inflammatory into Peripheral Vein, Percutaneous Approach (ICD-10-PCS; principal; 2019-03-18)
PROC: 3E03329 Introduction of Other Anti-infective into Peripheral Vein, Percutaneous Approach (ICD-10-PCS; 2019-03-18)
PROC: 3E033GC Introduction of Other Therapeutic Substance into Peripheral Vein, Percutaneous Approach (ICD-10-PCS; 2019-03-18)
DX: K57.92 Diverticulitis of intestine, part unspecified, without perforation or abscess without bleeding (principal); Z88.8 Allergy status to other drugs, medicaments and biological substances; I10 Essential (primary) hypertension; R73.03 Prediabetes; M51.9 Unspecified thoracic, thoracolumbar and lumbosacral intervertebral disc disorder
CPT/HCPCS: 36415; 80053; 81003; 85025; 96365; 96367; 96368; 99284-25

== ENCOUNTER 2019-03-31 05:51 | Emergency (ER) | payer OTHER ==
[2019-03-31 05:59] VITALS: TEMP 98.2; BMI 38.3
[2019-03-31] MEDS ORDERED: SODIUM CHLORIDE 0.9% 500 ML INFUS.BAG IV ONE (06:12)
--- NOTE | 2019-03-31 06:12 | PDOC ---
History of Present Illness - General Chief Complaint: Pain, Acute Stated Complaint: RIGHT FLANK PAIN RADIATING INTO RLQ Time Seen by Provider: 03/31/19 06:06 - History of Present Illness Initial Comments: 03/31/19 06:18 r lower back pain with occasional extension to RLQ Timing/Duration: reports: constant, getting worse Quality: reports: moderate Abdominal Pain Onset Location: reports: other (r back) Pain Radiation: reports: no radiation Activities at Onset: reports: rest Treatment Prior to Arrive: worse with: analgesics Aggravating Factors: worse with: Movement Alleviating Factors: worse with: None Past History - Past Medical History Allergies/Adverse Reactions: Allergies Allergy/AdvReac Type Severity Reaction Status Date / Time levofloxacin [From Levaquin] Allergy Intermediate Itching Verified 03/18/19 14: 47 Home Medications: Ambulatory Orders Metformin HCl [Glucophage] 1,000 mg PO BID 04/26/18 Oxycodone HCl/Acetaminophen [Percocet 10-325 mg Tablet] 1 each PO Q6H PRN Oxycodone HCl/Acetaminophen [Percocet 5-325 mg Tablet] 1 - 2 tab PO Q4H PRN #20 tablet MDD 6 03/18/19 Ramipril 5 mg PO DAILY 03/18/19 COPD: No Diabetes: Yes ("borderline") GI Disorders: Yes (diverticulitis) HTN: Yes ("borderline") - Psycho Social/Smoking Cessation Hx Smoking History: Never smoked Have you smoked in the past 12 months: No Information on smoking cessation initiated: No Hx Alcohol Use: No Drug/Substance Use Hx: No Substance Use Type: None Abd/GI Specific PMHX - Complaint Specific PMHX Diverticulitis: Yes Review of Systems - Review of Systems All Other Systems: Reviewed and Negative *Physical Exam - Vital Signs Last Vital Signs Temp Pulse Resp BP Pulse Ox 98.2 F 86 16 172/97 H 99 03/31/19 05:54 03/31/19 05:54 03/31/19 05:54 03/31/19 05:54 03/31/19 05:54 - Physical Exam General Appearance: Yes: Nourished HEENT: positive: Normal Voice Neck: negative: Lymphadenopathy (R), Lymphadenopathy (L) Respiratory/Chest: positive: Lungs Clear Cardiovascular: positive: Regular Rhythm Gastrointestinal/Abdominal: positive: Normal Bowel Sounds. negative: Tender, Distended Lymphatic: negative: Adenopathy Musculoskeletal: positive: Normal Inspection. negative: CVA Tenderness (R), CVA Tenderness (L), Decreased Range of Motion Extremity: positive: Normal Capillary Refill Integumentary: positive: Normal Color Neurologic: positive: compensation manager II-XII NML intact Medical Decision Making - Medical Decision Making 03/31/19 06:20 persistent non-positional back pain in this 33 year diabetic with hx of recurrent divericulitis this comes in setting of recent treatment for diverticulitis with amox ddx broad and includes kidney stone and recurrent diverticulitis analgesia check labs, urine image abd Discharge - Discharge Information Problems reviewed: Yes Clinical Impression/Diagnosis: Back pain Qualifiers: Back pain location: low back pain Chronicity: acute Back pain laterality: right Sciatica presence: unspecified whether sciatica present Qualified Code(s) : M54.5 - Low back pain Condition: Stable - Follow up/Referral - Patient Discharge Instructions - Post Discharge Activity
[2019-03-31] MEDS ORDERED: KETOROLAC TROMETHAMINE 30 MG/1 ML VIAL ONE (06:19)
[2019-03-31] MEDS ORDERED: KETOROLAC TROMETHAMINE 30 MG/1 ML VIAL IVPUSH ONE (06:31)
[2019-03-31 07:35] LABS: WHITE BLOOD COUNT 13.5 K/mm3 (4.0-10.0)
[2019-03-31 07:36] LABS: HEMATOCRIT 43.7 % (35.4-49); HEMOGLOBIN 14.7 GM/dL (11.7-16.9); MCH 29.6 pg (25.7-33.7); MCHC 33.7 g/dl (32.0-35.9); MEAN CELL VOLUME 87.9 fl (80-96); RBC 4.97 M/mm3 (4.00-5.60)
[2019-03-31 07:37] LABS: EOS % 1.2 % (0-4.5); LYMPH % 22.2 % (8-40); MEAN PLT VOLUME 9.9 fl (7.5-11.1); MONO % 4.3 % (3.8-10.2); PLATELET COUNT 234 K/MM3 (134-434); RDW 12.5 % (11.9-15.9)
[2019-03-31 07:38] LABS: BASO % 0.3 % (0-2.0)
[2019-03-31 07:54] LABS: ALBUMIN 3.9 g/dl (3.4-5.0); BILIRUBIN,TOTAL 0.7 mg/dL (0.2-1); CALCIUM 8.7 mg/dL (8.5-10.1); CREATININE 0.7 mg/dL (0.55-1.3); POTASSIUM 3.9 mmol/L (3.5-5.1); TOT PROT 6.8 g/dl (6.4-8.2)
[2019-03-31 09:50] LABS: URINE APPEARANCE CLEAR; URINE BILIRUBIN NEGATIVE (NEGATIVE); URINE COLOR YELLOW; URINE GLUCOSE (UA) 2+ (NEGATIVE); URINE KETONE TRACE (NEGATIVE); URINE LEUK ESTERASE NEGATIVE (NEGATIVE); URINE NITRITE NEGATIVE (NEGATIVE); URINE PROTEIN NEGATIVE (NEGATIVE); URINE UROBILINOGEN 0.2 mg/dL (0.2-1.0)
--- NOTE | 2019-03-31 10:06 | PDOC ---
*Physical Exam - Vital Signs Last Vital Signs Temp Pulse Resp BP Pulse Ox 98.2 F 82 16 139/92 99 03/31/19 05:54 03/31/19 07:45 03/31/19 07:45 03/31/19 07:45 03/31/19 05:54 - Physical Exam Comments: 03/31/19 10:03 Musculoskeletal: Reproducible right hip right lower back discomfort ED Treatment Course - LABORATORY CBC & Chemistry Diagram: 03/31/19 06:25 03/31/19 06:22 - ADDITIONAL ORDERS Additional order review: Laboratory Results 03/31/19 03/31/19 03/31/19 06:25 06:22 06:00 Sodium 137 Potassium 3.9 Chloride 103 Carbon Dioxide 27 Anion Gap 7 L BUN 14.0 Creatinine 0.7 Est GFR (CKD-EPI)AfAm 141.70 Est GFR (CKD-EPI)NonAf 122.26 Random Glucose 229 H Calcium 8.7 Total Bilirubin 0.7 AST 8 L ALT 21 Alkaline Phosphatase 70 Total Protein 6.8 Albumin 3.9 Urine Color Cancelled Yellow Urine Appearance Cancelled Clear Urine pH Cancelled 6.0 Ur Specific [place] 1.032 Urine Protein Cancelled Negative Urine Glucose (UA) Cancelled 2+ H Urine Ketones Cancelled Trace H Urine Blood Cancelled Negative Urine Nitrite Cancelled Negative Urine Bilirubin Cancelled Negative Urine Urobilinogen Cancelled 0.2 Ur Leukocyte Esterase Cancelled Negative 03/31/19 06:25 RBC 4.97 MCV 87.9 MCHC 33.7 RDW 12.5 MPV 9.9 Neutrophils % 72.0 Lymphocytes % 22.2 Monocytes % 4.3 Eosinophils % 1.2 Basophils % 0.3 - Medications Given in the ED: ED Medications Discontinued Medications Generic Name Dose Route Start Last Admin Trade Name Freq PRN Reason Stop Dose Admin Ketorolac Tromethamine 30 mg 03/31/19 06:31 03/31/19 06:25 Toradol Injection - IVPUSH 03/31/19 06:32 30 mg ONCE ONE Administration Sodium Chloride 1,000 ml 03/31/19 06:12 03/31/19 06:23 Normal Saline - IV 03/31/19 06:13 1,000 ml ONCE ONE Administration Medical Decision Making - Medical Decision Making 03/31/19 10:03 Labs notable for slightly elevated WBC the urinalysis is clean CAT scan of patient's abdomen pelvis demonstrates no acute pathology or infectious etiology of the patient's discomfort. No rash consistent with shingles noted at this time We will recommend conservative management NSAIDs rest ice orthopedic follow-up patient advised to return to ED for any fever severe worsening symptoms or for any concerns. Findings, the need for follow-up and strict return instructions discussed with patient. Discharge - Discharge Information Problems reviewed: Yes Clinical Impression/Diagnosis: Back pain Qualifiers: Back pain location: low back pain Chronicity: acute Back pain laterality: right Sciatica presence: unspecified whether sciatica present Qualified Code(s) : M54.5 - Low back pain Condition: Stable Disposition: HOME - Admission No - Follow up/Referral Referrals: Vitaliy Domingo MD [Staff Physician] - - Patient Discharge Instructions Patient Printed Discharge Instructions: Low Back Pain Additional Instructions: Ice affected area 20 minutes on 20 minutes off take 400 mg Motrin every 4-6 hours for 2 days if no improvement in symptoms follow-up with Dr. Domingo orthopedics. Return to ED for any fever severe worsening symptoms or for any concerns. - Post Discharge Activity Work/Back to School Note: Back to Work
[2019-03-31 10:27] VITALS: BP 149/100; PULSE 87
== END 2019-03-31 10:28 | disposition home or self-care (01) ==
LOC: FER 05:51
PROC: 3E0333Z Introduction of Anti-inflammatory into Peripheral Vein, Percutaneous Approach (ICD-10-PCS; principal; 2019-03-31)
PROC: 3E0337Z Introduction of Electrolytic and Water Balance Substance into Peripheral Vein, Percutaneous Approach (ICD-10-PCS; 2019-03-31)
DX: M54.5 Low back pain (principal); Z88.1 Allergy status to other antibiotic agents
CPT/HCPCS: 36415; 74176-TC; 80053; 81003; 85025; 87086; 99282-25